=== PATIENT | female | born 1945 | race Caucasian/White ===

== ENCOUNTER 2023-08-23 08:54 | Emergency (ER) | payer OTHER ==
[2023-08-23 09:55] LABS: Absolute Basophils 0.1 K/uL (0-0.5); Absolute Eosinophils 0.4 K/uL (0-0.5); Absolute Lymphocytes (CBC) 1.2 K/uL (0.7-4.9); Absolute Monocytes 0.6 K/uL (0.1-1.3); Absolute Neutrophil 4.8 K/uL (1.8-8.0); Hemoglobin 6.9 g/dL (12.0-15.0); Lymphocytes % 17.4 % (15.3-44.8); MCH 20.4 pg (27.0-35.0); MCHC 29.8 g/dL (32.0-36.0); MCV 68.7 fL (80-100); MPV 8.3 fL (7.6-11.3); Monocytes % 9.1 % (3.3-12.3); Neutrophils % 67.5 % (41.7-73.7); Nucleated Red Blood Cells % 0.1 % (0-0); Platelets 346 thou/uL (152-406); RBC Red Blood Cell Count 3.35 M/uL (3.86-4.86); Red Cell Distribution Width 18.6 % (12.1-15.2)
[2023-08-23 10:13] LABS: Albumin 3.2 g/dL (3.4-5.0); Albumin/Globulin Ratio 0.9 (1.1-1.8); Anion Gap 7.9 mEq/L (5.0-15.0); Bilirubin Total 0.3 mg/dL (0.2-1.0); Globulin 3.7 g/dL (2.3-3.5); Potassium 3.9 mEq/L (3.5-5.1); Protein, Total 6.9 g/dL (6.4-8.2)
[2023-08-23 10:39] LABS: Blood Morphology Comment NOTED (NOT SEEN); Hypochromasia 1+; Microcytosis 1+; Platelet Estimate ADEQ; White Blood Cell Scan OK (OK)
[2023-08-23] MEDS ORDERED: NA CHLORIDE 0.9% 250 ML ONE (11:45)
--- NOTE | 2023-08-23 17:07 | EDPHYS ---
Physician Documentation [facility] Name: Nancy Spencer Age: 78 yrs Sex: Female : 1945 Arrival Date: 08/23/2023 Time: 08:54 Bed 7 Private MD: ED Physician Octaviano Humphreys HPI: 08/22 10:13 This 78 yrs old Female presents to ER via Ambulatory with complaints of Abnormal Lab rt Results. 10:13 Patient presents to the ED with anemia on outpatient labs. She reports of fatigue, rt lightheadedness, shortness of breath. States that hemoglobin was 7.0. Denies any active bleeding to include black, red stools, vaginal bleeding. Denies easy bruising. Denies other acute complaints at this time, symptoms are moderate in severity, no other aggravating or alleviating factors.. Historical: - Allergies: 09:09 PENICILLINS; ll1 09:09 seafood; ll1 09:09 Ciprofloxacin; ll1 09:09 Keflex; ll1 - Home Meds: 09:53 Synthroid, meloxicam, losartan-hctz, pantoprazole, montelukast, doxepin, baclofen, aa5 isosorbide, zyrtec, trelegy ellipta, baby ASA, pepcid, ipratropium bromide, amlodipine besylate, gabapentin [Active]; - PMHx: 09:09 Hypertensive disorder; Hypothyroidism; ll1 - PSHx: 09:09 Thyroidectomy; Appendectomy; Cholecystectomy; hysterectomy; ll1 09:49 Deviated nasal septum; Rectosigmoidectomy (8-10in of colon removed); Cyst removed from aa5 L groin; cataracts; nose (basal cell); eyelids for peripheral vision; - Immunization history:: Adult Immunizations up to date. - Infectious Disease History:: Denies. - Social history:: Smoking status: Patient denies any tobacco usage or history of. - Family history:: not pertinent. ROS: 10:13 Cardiovascular: Negative for chest pain, palpitations, and edema, Abdomen/GI: Negative rt for abdominal pain, nausea, vomiting, diarrhea, and constipation, MS/Extremity: Negative for injury and deformity, Skin: Negative for injury, rash, and discoloration, 10:13 Constitutional: Positive for fatigue, Negative for fever, 10:13 Respiratory: Positive for shortness of breath, Negative for cough, Exam: 10:13 Constitutional: This is a well developed, well nourished patient who is awake, alert, rt and in no acute distress. Head/Face: Normocephalic, atraumatic. Chest/axilla: Normal chest wall appearance and motion. Nontender with no deformity. No lesions are appreciated. Cardiovascular: Regular rate and rhythm with a normal S1 and S2. No gallops, murmurs, or rubs. Normal PMI, no JVD. No pulse deficits. Respiratory: Lungs have equal breath sounds bilaterally, clear to auscultation and percussion. No rales, rhonchi or wheezes noted. No increased work of breathing, no retractions or nasal flaring. Abdomen/GI: Soft, non-tender, with normal bowel sounds. No distension or tympany. No guarding or rebound. No evidence of tenderness throughout. Skin: Warm, dry with normal turgor. Normal color with no rashes, no lesions, and no evidence of cellulitis. MS/ Extremity: Pulses equal, no cyanosis. Neurovascular intact. Full, normal range of motion. Neuro: Awake and alert, GCS 15, oriented to person, place, time, and situation. Cranial nerves II-XII grossly intact. Motor strength 5/5 in all extremities. Sensory grossly intact. Cerebellar exam normal. Normal gait. 10:13 Eyes: Pale conjunctiva. Vital Signs: 09:10 BP 150 / 55; Pulse 88; Resp 17; Temp 97.9; Pulse Ox 99% on R/A; Weight 86.18 kg; Height ll1 5 ft. 2 in. ; Pain 0/10; 11:58 BP 119 / 36; Pulse 65; Resp 16 S; Temp 98.5(O); Pulse Ox 98% on R/A; aa5 12:15 BP 125 / 57; Pulse 75; Resp 18; Temp 97.9(O); Pulse Ox 98% on R/A; aa5 13:00 BP 127 / 58; Pulse 72; Resp 16 S; Temp 97.9(O); Pulse Ox 97% on R/A; aa5 14:00 BP 129 / 54; Pulse 65; Resp 18 S; Temp 98(O); Pulse Ox 98% on R/A; aa5 14:38 BP 130 / 54; Pulse 69; Resp 16 S; Temp 97.8(O); Pulse Ox 100% on R/A; aa5 14:55 BP 125 / 52; Pulse 66; Resp 16 S; Temp 98(O); Pulse Ox 100% on R/A; aa5 15:40 BP 125 / 64; Pulse 65; Resp 16 S; Temp 97.8(O); Pulse Ox 99% on R/A; aa5 16:55 BP 120 / 60; Pulse 64; Resp 18 S; Temp 97.9(O); Pulse Ox 98% on R/A; aa5 09:10 Body Mass Index 34.75 (86.18 kg, 157.48 cm) ll1 09:10 Pain Scale: Adult ll1 MDM: 09:17 Patient medically screened. rt 21:42 Differential Diagnosis Anemia. Data reviewed: vital signs, nurses notes, lab test rt result(s). Consideration of Admission/Observation Escalation of care including admission/observation considered. Patient strongly desirous of discharge, do not see any active bleeding currently. Patient was given blood, symptomatically much improved, stable for outpatient care.. I considered the following discharge prescriptions or medication management in the emergency department Medications were administered in the Emergency Department. See MAR. Care significantly affected by the following chronic conditions: Hypertension. Counseling: I had a detailed discussion with the patient and/or guardian regarding the historical points, exam findings, and any diagnostic results supporting the discharge/admit diagnosis, lab results, the need for outpatient follow up, to return to the emergency department if symptoms worsen or persist or if there are any questions or concerns that arise at home. Response to treatment: the patient's symptoms have markedly improved after treatment. 08/22 09:25 Order name: CBC with Diff; Complete Time: 11:10 rt 08/22 09:25 Order name: CMP; Complete Time: 10:21 rt 08/22 09:25 Order name: Type And Screen rt 08/22 09:58 Order name: CBC Smear Scan; Complete Time: 11:10 EDMS 08/22 10:28 Order name: ABO/RH no charge; Complete Time: 11:10 EDMS 08/22 10:34 Order name: Packed RBC Leukored EDMS Administered Medications: No medications were administered Disposition Summary: 08/23/23 17:06 Discharge Ordered Notes: Location: Home rt Problem: new rt Symptoms: have improved rt Condition: Stable rt Diagnosis - Symptomatic anemia rt Followup: rt - With: Private Physician - When: 2 - 3 days - Reason: Discharge Instructions: - Discharge Summary Sheet rt - Anemia rt Forms: - Medication Reconciliation Form rt - Antibiotic Education rt - Prescription Opioid Use rt - Patient Portal Instructions rt - Leadership Thank You Letter rt Critical care time excluding procedures: 21:42 Critical care time: Bedside Care: 35 minutes. Total time: 35 minutes rt Signatures: Dispatcher [employer] Beckie Tejada RN RN aa5 Aleah Durham RN RN ll1 Octaviano Humphreys MD MD rt Corrections: (The following items were deleted from the chart) 09:56 09:53 Home Meds: Synthroid Oral once; milena aa5
--- NOTE | 2023-08-23 17:07 | ER ---
Nurse's Notes [facility] Name: Nancy Spencer Age: 78 yrs Sex: Female : 1945 Arrival Date: 08/23/2023 Time: 08:54 Bed 7 Private MD: Diagnosis: Symptomatic anemia Presentation: 08/22 09:10 Chief complaint: Patient states: HGB 7.0 with last blood draw. Would like a transfusion ll1 but does not want to be admitted. + weak, fatigued easily, and SOB at times. Coronavirus screen: Client denies travel out of the [place] in the last 14 days. At this time, the client does not indicate any symptoms associated with coronavirus-19. Ebola Screen: Patient denies travel to an Ebola-affected area in the 21 days before illness onset. Initial Sepsis Screen: Does the patient meet any 2 criteria? No. Patient's initial sepsis screen is negative. Does the patient have a suspected source of infection? No. Patient's initial sepsis screen is negative. Risk Assessment: Do you want to hurt yourself or someone else? Patient reports no desire to harm self or others. Onset of symptoms was August 23, 2023. 09:10 Method Of Arrival: Ambulatory ll1 09:10 Acuity: LUCY 2 ll1 Triage Assessment: 09:12 General: Appears uncomfortable, Behavior is calm, cooperative, appropriate for age. ll1 General: states needs a blood transfusion. Pain: Denies pain. Cardiovascular: Reports fatigue, shortness of breath. Historical: - Allergies: 09:09 PENICILLINS; ll1 09:09 seafood; ll1 09:09 Ciprofloxacin; ll1 09:09 Keflex; ll1 - Home Meds: 09:53 Synthroid, meloxicam, losartan-hctz, pantoprazole, montelukast, doxepin, baclofen, aa5 isosorbide, zyrtec, trelegy ellipta, baby ASA, pepcid, ipratropium bromide, amlodipine besylate, gabapentin [Active]; - PMHx: 09:09 Hypertensive disorder; Hypothyroidism; ll1 - PSHx: 09:09 Thyroidectomy; Appendectomy; Cholecystectomy; hysterectomy; ll1 09:49 Deviated nasal septum; Rectosigmoidectomy (8-10in of colon removed); Cyst removed from aa5 L groin; cataracts; nose (basal cell); eyelids for peripheral vision; - Immunization history:: Adult Immunizations up to date. - Infectious Disease History:: Denies. - Social history:: Smoking status: Patient denies any tobacco usage or history of. - Family history:: not pertinent. Screenin:40 [facility] ED Fall Risk Assessment (Adult) History of falling in the last 3 months, aa5 including since admission No falls in past 3 months (0 pts) Confusion or Disorientation No (0 pts) Intoxicated or Sedated No (0 pts) Impaired Gait No (0 pts) Mobility Assist Device Used No (0 pt) Altered Elimination No (0 pt) Score/Fall Risk Level 0 - 2 = Low Risk Oriented to surroundings, Maintained a safe environment, Educated pt \T\ family on fall prevention, incl call for assistance when getting out of bed, Assessed \T\ reinforced patient's understanding of fall precautions. Abuse screen: Denies threats or abuse. Nutritional screening: No deficits noted. Tuberculosis screening: No symptoms or risk factors identified. Assessment: 09:20 General: Appears comfortable, Behavior is calm, cooperative, Reports fatigue for >3 aa5 days. Pain: Denies pain. Neuro: Level of Consciousness is awake, alert, obeys commands, Oriented to person, place, time, situation. Cardiovascular: Heart tones S1 S2 present Rhythm is regular. Respiratory: Reports shortness of breath on exertion Airway is patent Respiratory effort is even, unlabored, Respiratory pattern is regular, symmetrical. GI: Abdomen is round non-distended, Bowel sounds present X 4 quads. Abd is soft X 4 quads Patient currently denies abdominal pain, bloody stool, diarrhea, nausea, vomiting. : No signs and/or symptoms were reported regarding the genitourinary system. EENT: No signs and/or symptoms were reported regarding the EENT system. Derm: Skin is dry, Skin is pale, Skin temperature is warm. Musculoskeletal: Range of motion: intact in all extremities. 09:50 Reassessment: Pt given water and warm blanket for comfort. Call jamil remains within aa5 reach. . 10:08 Neuro: Level of Consciousness is awake, alert, obeys commands, Oriented to person, aa5 place, time, situation. Respiratory: Airway is patent Respiratory effort is even, unlabored, Respiratory pattern is regular, symmetrical. Derm: Skin is dry, Skin is pale, Skin temperature is warm. 10:08 Reassessment: Pt sitting up in bed, call jamil within reach, pt using her electronics. . aa5 12:15 Reassessment: Started RBC blood transfusion at 1200 at 50 cc/hr, currently infusing at aa5 150 cc/hr. No adverse reactions noted or reported. See blood transfusion record for more information and complete vital signs. . 12:15 Reassessment: Patient is alert, oriented x 3, equal unlabored respirations, skin aa5 warm/dry/pink. 14:00 Reassessment: Unit RBC unit #1 completed . aa5 14:55 Reassessment: RBC unit # 2 started at 1440 at 50 cc/hr, currently infusing at 200 aa5 cc/hr. No adverse reaction noted or reported. See blood transfusion record for more information and complete vital signs. . 14:55 Reassessment: Patient is alert, oriented x 3, equal unlabored respirations, skin aa5 warm/dry/pink. 16:55 Reassessment: RBC unit #2 completed. . aa5 16:55 Reassessment: Patient is alert, oriented x 3, equal unlabored respirations, skin aa5 warm/dry/pink. 16:55 Reassessment: Elimination needs were met. Pt ambulated to the restroom several times aa5 and tolerated ambulation well. . Vital Signs: 09:10 BP 150 / 55; Pulse 88; Resp 17; Temp 97.9; Pulse Ox 99% on R/A; Weight 86.18 kg; Height ll1 5 ft. 2 in. ; Pain 0/10; 11:58 BP 119 / 36; Pulse 65; Resp 16 S; Temp 98.5(O); Pulse Ox 98% on R/A; aa5 12:15 BP 125 / 57; Pulse 75; Resp 18; Temp 97.9(O); Pulse Ox 98% on R/A; aa5 13:00 BP 127 / 58; Pulse 72; Resp 16 S; Temp 97.9(O); Pulse Ox 97% on R/A; aa5 14:00 BP 129 / 54; Pulse 65; Resp 18 S; Temp 98(O); Pulse Ox 98% on R/A; aa5 14:38 BP 130 / 54; Pulse 69; Resp 16 S; Temp 97.8(O); Pulse Ox 100% on R/A; aa5 14:55 BP 125 / 52; Pulse 66; Resp 16 S; Temp 98(O); Pulse Ox 100% on R/A; aa5 15:40 BP 125 / 64; Pulse 65; Resp 16 S; Temp 97.8(O); Pulse Ox 99% on R/A; aa5 16:55 BP 120 / 60; Pulse 64; Resp 18 S; Temp 97.9(O); Pulse Ox 98% on R/A; aa5 09:10 Body Mass Index 34.75 (86.18 kg, 157.48 cm) ll1 09:10 Pain Scale: Adult 1 ED Course: 08:58 Patient arrived in ED. mg5 08:58 Octaviano Humphreys MD is Attending Physician. rt 09:01 Arm band placed on Patient placed in an exam room, on a stretcher. ll1 09:12 Triage completed. ll1 09:20 Patient has correct armband on for positive identification. Placed in gown. Bed in low aa5 position. Call light in reach. Side rails up X2. Pulse ox on. NIBP on. 09:25 Beckie Gonzalez, RN is Primary Nurse. aa5 09:40 Initial lab(s) drawn, by me, sent to lab. Inserted saline lock: 20 gauge in left aa5 antecubital area, using aseptic technique. Blood collected. 11:25 Consent for blood and/or blood product transfusion explained by staff, explained by aa5 physician, signed by patient. 17:24 No provider procedures requiring assistance completed. IV discontinued, intact, ph bleeding controlled, No redness/swelling at site. Pressure dressing applied. Administered Medications: No medications were administered Medication: 10:24 VIS not applicable for this client. aa5 Outcome: 17:06 Discharge ordered by . rt 17:24 Discharged to home ambulatory, with significant other, ph 17:24 Condition: good 17:24 Discharge instructions given to patient, Instructed on discharge instructions, follow up and referral plans. Demonstrated understanding of instructions, follow-up care, 17:29 Patient left the ED. ph Signatures: Beckie Gonzalez, [employer] aa5 Inga Grimaldo RN RN ph Aleah Durham RN RN ll1 Octaviano Humphreys MD MD rt Monique Chavira mg5 Corrections: (The following items were deleted from the chart) 09:56 09:53 Home Meds: Synthroid Oral once; aa5 aa5 09:20 General: Appears comfortable, Behavior is calm, cooperative, aa5 aa5 09:20 Respiratory: Airway is patent Respiratory effort is even, unlabored, Respiratory aa5 pattern is regular, symmetrical, aa5 13:06 12:31 BP 125 / 57; Pulse 75bpm; Resp 18bpm; Pulse Ox 99% RA; ph aa5 20:16 17:24 BP 120 / 60; Pulse 66bpm; Resp 18bpm; Pulse Ox 98%; Temp 97.8F; ph aa5 20:22 15:40 BP 125 / 64; Pulse 65bpm; Resp 16bpm; Pulse Ox 99% RA; Temp 97.8F Oral; aa5 aa5
[2023-08-23 17:40] VITALS: BP 120/60; TEMP 97.8; O2SAT 98
== END 2023-08-23 17:29 | disposition home or self-care (01) ==
LOC: ER 08:54
PROC: 30233N1 Transfusion of Nonautologous Red Blood Cells into Peripheral Vein, Percutaneous Approach (ICD-10-PCS; principal; 2023-08-23)
DX: D64.9 Anemia, unspecified (principal)
CPT/HCPCS: 85025; 36415; 86900; 86850; 86901; 86920 ×2; 80053; 99284; 36430; P9016 ×2; J7050